=== PATIENT | female | born 1965 | race Caucasian/White ===

== ENCOUNTER 2023-08-13 22:27 | Emergency (ER) | payer OTHER ==
[2023-08-13] MEDS ORDERED: TDAP (DIPHTH,PERTUSS(ACELL),TET VAC) 0.5 ML VIAL IMVAC ONE (23:06)
[2023-08-13] MEDS ORDERED: CEFTRIAXONE 1000 MG/VIAL ONE (23:06)
[2023-08-13] MEDS ORDERED: LIDOCAINE 1% MPF 5 ML VIAL ONE (23:06)
--- NOTE | 2023-08-13 23:27 | ER ---
Nurse's Notes [facility] Name: Lisseth Sams Age: 58 yrs Sex: Female : 1965 Arrival Date: 08/13/2023 Time: 22:27 Bed 14 Private MD: Diagnosis: Cellulitis of finger Presentation: 08/12 22:52 Chief complaint: Patient states: Accidentally stabbed her right index finger with a cm10 knife last night and now she is having redness and swelling. Pt was started on Bactrim last night. Coronavirus screen: Client denies travel out of the [place] in the last 14 days. At this time, the client does not indicate any symptoms associated with coronavirus-19. Ebola Screen: Patient denies travel to an Ebola-affected area in the 21 days before illness onset. No symptoms or risks identified at this time. Initial Sepsis Screen: Does the patient meet any 2 criteria? No. Patient's initial sepsis screen is negative. Does the patient have a suspected source of infection? No. Patient's initial sepsis screen is negative. Risk Assessment: Do you want to hurt yourself or someone else? Patient reports no desire to harm self or others. Onset of symptoms was August 13, 2023. 22:52 Method Of Arrival: Ambulatory cm10 22:52 Acuity: JAIRO 4 cm10 Triage Assessment: 22:56 General: Appears in no apparent distress. comfortable, Behavior is calm, cooperative. cm10 Pain: Complains of pain in palmar aspect of proxima; phalanx of right index finger. Neuro: No deficits noted. Level of Consciousness is awake, alert, obeys commands, Oriented to person, place, time, situation, Appropriate for age. Respiratory: No deficits noted. Airway is patent Respiratory effort is even, unlabored, Respiratory pattern is regular, symmetrical. Derm: No deficits noted. Skin is healthy with good turgor, Skin is pink, warm \T\ dry. Musculoskeletal: Swelling present in palmar aspect of proxima; phalanx of right index finger Reports pain in palmar aspect of proxima; phalanx of right index finger. Injury Description: Laceration sustained to palmar aspect of proxima; phalanx of right index finger is 0.5 to 2.5 cm long, not bleeding, was sustained 1 day ago. no active bleeding noted at this time. 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 - Infectious Disease History:: Denies. - Social history:: Smoking status: Patient denies any tobacco usage or history of. Screenin:58 [facility] ED Fall Risk Assessment (Adult) History of falling in the last 3 months, cm10 including since admission No falls in past 3 months (0 pts) Confusion or Disorientation No (0 pts) Intoxicated or Sedated No (0 pts) Impaired Gait No (0 pts) Mobility Assist Device Used No (0 pt) Altered Elimination No (0 pt) Score/Fall Risk Level 0 - 2 = Low Risk Oriented to surroundings, Maintained a safe environment, Used ambulatory aids as needed (educated on \T\ assisted with). Abuse screen: Denies threats or abuse. Denies injuries from another. Nutritional screening: No deficits noted. Tuberculosis screening: No symptoms or risk factors identified. Assessment: 23:20 General: Appears in no apparent distress. comfortable, well groomed, well developed, jh8 well nourished. Pain: Denies pain. Neuro: Level of Consciousness is awake, alert, obeys commands, Oriented to person, place, time, situation. Cardiovascular: Capillary refill < 3 seconds Patient's skin is warm and dry. Respiratory: Airway is patent Respiratory effort is even, unlabored, Respiratory pattern is regular. Derm: Skin is intact, is healthy with good turgor, redness and swelling to rt index finger. Vital Signs: 22:52 BP 143 / 87; Pulse 78; Resp 18; Temp 98.2(O); Pulse Ox 100% ; Weight 48.99 kg; Height 5 cm10 ft. 3 in. ; Pain 7/10; 23:33 BP 136 / 86; Pulse 78; Resp 18; Temp 98.7; Pulse Ox 98% ; Pain 0/10; jh8 22:52 Body Mass Index 19.13 (48.99 kg, 160.02 cm) cm10 22:52 Pain Scale: Adult cm10 23:33 Pain Scale: Adult [facility] ED Course: 22:31 Patient arrived in ED. im 22:34 Colleen Tierney PA-C is PHCP. sb4 22:34 Mike Cornejo MD is Attending Physician. sb4 22:55 Triage completed. cm10 22:58 Arm band placed on Patient placed in an exam room, on a stretcher. cm10 23:34 No provider procedures requiring assistance completed. jh8 23:37 Patient has correct armband on for positive identification. Bed in low position. Call [facility] light in reach. Side rails up X 1. Provided Education on: meds. 23:37 Patient did not have IV access during this emergency room visit. 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 Questions and/or concerns [facility] addressed. VIS edition date: August 13, 2023. Outcome: 23:26 Discharge ordered by MD. sb4 23:36 Discharged to home ambulatory, jh8 23:36 Condition: good 23:36 Discharge instructions given to patient, Instructed on discharge instructions, follow up and referral plans. medication usage, Demonstrated understanding of instructions, follow-up care, medications, Prescriptions given X 2, 23:38 Patient left the ED. 8 Signatures: Colleen Tierney PA-C PA-C sb4 Dalia Kearns Clarissa, RN RN 10 Lavon Mays RN RN 8 Corrections: (The following items were deleted from the chart) 23:36 23:18 Boostrix Tdap IM 0.5 ml IM in left deltoid 8 8
--- NOTE | 2023-08-13 23:27 | EDPHYS ---
Physician Documentation [facility] Name: Lisseth Sams Age: 58 yrs Sex: Female : 1965 Arrival Date: 08/13/2023 Time: 22:27 Bed 14 Private MD: ED Physician Mike Cornejo HPI: 08/12 23:31 This 58 yrs old Female presents to ER via Ambulatory with complaints of Finger Injury. sb4 23:31 accidentally punctured her right index finger last night while cutting an avocado. had sb4 old bactrim () at home and started taking it. states it has become progressively swollen and more painful. no reported fevers. tetanus shot is not up to date . 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 - Infectious Disease History:: Denies. - Social history:: Smoking status: Patient denies any tobacco usage or history of. ROS: 23:31 Constitutional: Negative for fever, chills, and weight loss, sb4 23:31 Skin: Positive for cellulitis, puncture, swelling, of the palmar aspect of middle phalanx of right index finger and palmar aspect of proxima; phalanx of right index finger, 23:31 All other systems are negative, Exam: 23:33 Constitutional: This is a well developed, well nourished patient who is awake, alert, sb4 and in no acute distress. Head/Face: Normocephalic, atraumatic. Eyes: Extra-ocular motions intact. Periorbital areas with no swelling, redness, or edema. ENT: Mucous membranes moist. 23:33 Skin: cellulitis, that is moderate, well demarcated, on the dorsal aspect of middle phalanx of right index finger, dorsal aspect of proximal phalanx of right index finger, palmar aspect of middle phalanx of right index finger and palmar aspect of proxima; phalanx of right index finger, Vital Signs: 22:52 BP 143 / 87; Pulse 78; Resp 18; Temp 98.2(O); Pulse Ox 100% ; Weight 48.99 kg; Height 5 cm10 ft. 3 in. ; Pain 7/10; 23:33 BP 136 / 86; Pulse 78; Resp 18; Temp 98.7; Pulse Ox 98% ; Pain 0/10; jh8 22:52 Body Mass Index 19.13 (48.99 kg, 160.02 cm) cm10 22:52 Pain Scale: Adult cm10 23:33 Pain Scale: Adult jh8 MDM: 22:39 Patient medically screened. sb4 23:33 Data reviewed: vital signs, nurses notes, and as a result, I will discharge patient. sb4 Counseling: I had a detailed discussion with the patient and/or guardian regarding the historical points, exam findings, and any diagnostic results supporting the discharge/admit diagnosis, to return to the emergency department if symptoms worsen or persist or if there are any questions or concerns that arise at home. 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 I reviewed the patient's care provided by the Advanced Practice Provider and agree with the diagnosis and treatment plan. Disposition Summary: 08/13/23 23:26 Discharge Ordered Notes: Location: Home sb4 Problem: new sb4 Symptoms: have improved sb4 Condition: Stable sb4 Diagnosis - Cellulitis of finger sb4 Followup: sb4 - With: Emergency Department - When: As needed - Reason: Trouble breathing, Worsening of condition Discharge Instructions: - Discharge Summary Sheet sb4 - Cellulitis, Adult sb4 Forms: - Antibiotic Education sb4 - Patient Portal Instructions sb4 - Leadership Thank You Letter sb4 Prescriptions: - Doxycycline Hyclate 100 mg Oral Tablet - take 1 tablet ORAL route every 12 hours; 20 tablet; Refills: 0, Product sb4 Selection Permitted - Bactrim DS 800-160 mg Oral Tablet - take 1 tablet ORAL route every 12 hours for 10 days; 20 tablet; Refills: 0, sb4 Product Selection Permitted Signatures: Colleen Tierney, SEBAS MULLEN sb4 Mike Cornejo MD MD sp4 Liana Mcdaniel RN RN cm10 Lavon Mays RN RN jh8 Corrections: (The following items were deleted from the chart) 08/12 23:33 23:31 accidentally punctured her left index finger last night while cutting an avocado. sb4 had old bactrim () at home and started taking it. states it has become progressively swollen and more painful. no reported fevers. . sb4
[2023-08-14 00:35] VITALS: BP 136/86; TEMP 98.7; O2SAT 98
== END 2023-08-13 23:38 | disposition home or self-care (01) ==
LOC: ER 22:27
DX: L03.011 Cellulitis of right finger (principal)
CPT/HCPCS: 96372; 99284; J2001; J0696